=== PATIENT | female | born 1990 | race Caucasian/White ===

== ENCOUNTER 2017-03-18 11:47 | Emergency (ER) | payer SELFPAY ==
[2017-03-18 11:55] VITALS: BP 115/74; BMI 25.0
[2017-03-18] MEDS ORDERED: NS 1000 ML 1,000 ML IV ONE (12:31)
--- NOTE | 2017-03-18 12:32 | DR.GENAD ---
HPI - PCP Primary Care Physician: NFD - Complaint/Symptoms Chief Complaint:: PT C/O N/V, LIGHT HEADED, WEAKNESS, TIGHTNESS IN CHEST, TOOTHACHE (HAS BEEN BEING TREATED WITH ANTIBIOTIC). PT STATES THESE SX STARTED THIS AM WHEN SHE WOKE UP. PT ALSO STATES SHE HAS VOMITTED X4 TIMES. - Source History Provided: Patient - Mode of Arrival Mode of Arrival: Ambulatory - Timing Onset of Chief Complaint: 03/18/17 PMH - PMH Past Medical History: Yes Past Medical History: Asthma Past Medical History Comment: CHRONS DISEASE Past Surgical History: No - Family History History of Family Medical Conditions: Yes Family Medical History: Diabetes Mellitus, Cancer, Heart Failure Family Medical History Comment: COPD, EMPYSEMIA - Social History Does patient currently use any type of tobacco product: Yes Have you used tobacco products in the last 12 months: Yes Type of Tobacco Use: Cigarettes Does any household member use tobacco: Yes Alcohol Use: None Do you use any recreational Drugs:: No Lives With: Family Lives Where: Home - infectious screening In the last 2 months have you had wt loss of >10#?: NO Have you had fever, night sweats or hemotysis?: No Have you traveled outside the country in the last 6 months?: No Isolation: Standard ROS - Review of Systems Constitutional: No Symptoms Reported Eyes: No Symptoms Reported ENTM: No Symptoms Reported Respiratoy: No Symptoms Reported Cardiovascular: No Symptoms Reported Gastrointestinal/Abdominal: No Symptoms Reported Genitourinary: No Symptoms Reported Neurological: No Symptoms Reported Musculoskeletal: No Symptoms Reported Integumentary: No Symptoms Reported Hematologic/Lymphatic: No Symptoms Reported Endocrine: No Symptoms Reported Psychiatric: No Symptoms Reported All Other Systems: Reviewed and Negative PE - Vital Signs Vitals: Temperature 98.1 F Pulse Rate 86 Respiratory Rate 20 Blood Pressure 115/74 O2 Sat by Pulse Oximetry 99 - General Limitations: No Limitations General Appearance: Alert, In No Apparent Distress - Head Head Exam: Normal Inspection, Atraumatic - Eyes Eye exam: Normal Appearance, PERRL, EOMI - ENT ENT Exam: Normal Exam External Ear Exam: Normal External Inspection TM/Canal Exam: Bilateral Normal Nose Exam: Normal Nose Exam Mouth Exam: Normal Inspection Throat Exam: Normal Inspection - Neck Neck Exam: Normal Inspection - Chest Chest Inspection: Normal Inspection - Respiratory Respiratory Exam: Normal Lung Sounds Bilat Respiratory Exam: Bilateral Clear to Auscultation - Cardiovascular Cardiovascular Exam: Regular Rate, Normal Rhythm - Abdominal Exam Abdominal Exam: Normal Inspection Abdominal Tenderness: negative: RUQ, RLQ, LUQ, LLQ, Epigastrium, Suprapubic, Diffuse, Mild, Moderate, Severe, Other - Extremities Extremities Exam: Normal Inspection, Full ROM - Back Back Exam: Normal Inspection, Full ROM - Neurologic Neurological Exam: Alert, Oriented X3, CN II-XII Intact - Psychiatric Psychiatric Exam: Normal Affect - Skin Skin Exam: Warm, Dry, Intact ROR - Labs Reviewed Laboratory Results Reviewed?: Yes (urine negative) Result Diagrams: 03/18/17 12:50 03/18/17 12:50 Laboratory: WBC 8.5 X10^3/uL (3.6-10.0) 03/18/17 12:50 RBC 4.73 X10^6/uL (3.5-5.4) 03/18/17 12:50 Hgb 14.7 g/dL (12.0-16.0) 03/18/17 12:50 Hct 42.2 % (36.0-47.0) 03/18/17 12:50 MCV 89.1 fL (80.0-100.0) 03/18/17 12:50 MCH 31.0 pg (27.0-34.0) 03/18/17 12:50 MCHC 34.8 g/dL (33.0-35.0) 03/18/17 12:50 RDW 13.7 % (11.6-16.5) 03/18/17 12:50 Plt Count 232 X10^3/uL (150.0-450.0) 03/18/17 12:50 MPV 8.9 fL (7.4-11.0) 03/18/17 12:50 Neut % 65.3 % (42.0-75.0) 03/18/17 12:50 Lymph % 25.6 % (21.0-51.0) 03/18/17 12:50 [place] % 7.2 % (0.0-13.0) 03/18/17 12:50 Eos % 1.0 % (0.9-2.9) 03/18/17 12:50 Baso % 0.9 % (0.2-1.0) 03/18/17 12:50 Neut # 5.6 x10^3/uL (2.2-4.8) H 03/18/17 12:50 Lymph # 2.2 X10^3/uL (1.3-2.9) 03/18/17 12:50 [place] # 0.6 x10^3/uL (0.3-0.8) 03/18/17 12:50 Eos # 0.1 x10^3/uL (0.0-0.2) 03/18/17 12:50 Baso # 0.1 X10^3/uL (0.0-0.1) 03/18/17 12:50 Absolute Nucleated RBC 0.0 /100WBC 03/18/17 12:50 Sodium 140 mmol/L (136-145) 03/18/17 12:50 Corrected Sodium TNP 03/18/17 12:50 Potassium 4.3 mmol/L (3.5-5.1) 03/18/17 12:50 Chloride 107 mmol/L (98-107) 03/18/17 12:50 Carbon Dioxide 27.4 mmol/L (21-32) 03/18/17 12:50 BUN 8 mg/dL (7-18) 03/18/17 12:50 Creatinine 0.79 mg/dL (0.55-1.02) 03/18/17 12:50 Est GFR (MDRD) Af Amer > 60 (>60) 03/18/17 12:50 Est GFR (MDRD) Non-Af > 60 (>60) 03/18/17 12:50 Glucose 82 mg/dL (65-99) 03/18/17 12:50 Calcium 9.0 mg/dL (8.5-10.1) 03/18/17 12:50 Corrected Calcium TNP 03/18/17 12:50 Total Bilirubin 1.00 mg/dL (0.2-1.0) 03/18/17 12:50 AST 22 Units/L (15-37) 03/18/17 12:50 ALT 33 Units/L (12-78) 03/18/17 12:50 Alkaline Phosphatase 68 Units/L (46-116) 03/18/17 12:50 Total Protein 7.4 g/dL (6.4-8.2) 03/18/17 12:50 Albumin 3.7 g/dL (3.4-5.0) 03/18/17 12:50 Globulin 3.7 g/dL (2.5-4.5) 03/18/17 12:50 Albumin/Globulin Ratio 1.0 Ratio (1.1-2.1) L 03/18/17 12:50 HCG, Qual Negative <10 mIU/mL 03/18/17 12:50 Specimen Type Clean catch urine 03/18/17 13:09 Urine Color Yellow (YELLOW) 03/18/17 13:09 Urine Appearance Clear (CLEAR) 03/18/17 13:09 Urine pH 6.0 (5.0 - 8.0) 03/18/17 13:09 Ur Specific [place] 1.010 (1.000-1.030) 03/18/17 13:09 Urine Protein 1+ (NEGATIVE) 03/18/17 13:09 Urine Glucose (UA) Negative (NEGATIVE) 03/18/17 13:09 Urine Ketones Negative (NEGATIVE) 03/18/17 13:09 Urine Occult Blood Negative (NEGATIVE) 03/18/17 13:09 Urine Nitrite Negative (NEGATIVE) 03/18/17 13:09 Urine Bilirubin Negative (NEGATIVE) 03/18/17 13:09 Urine Urobilinogen Normal (NORMAL) 03/18/17 13:09 Ur Leukocyte Esterase 1+ (NEGATIVE) 03/18/17 13:09 Urine RBC 0-3 /HPF (NEGATIVE) 03/18/17 13:09 Urine WBC 0-3 /HPF (NEGATIVE) 03/18/17 13:09 Ur Squamous Epith Cells Negative /HPF (NEGATIVE) 03/18/17 13:09 Urine Bacteria Negative /HPF (NEGATIVE) 03/18/17 13:09 Ur Culture Indicated? No/not indicated 03/18/17 13:09 - XRAY XRAY Interpreted by: Radiologist (Chest: no acute cardiopulmonary disease) - Diagnosis Discharge Problem: Viral disease exposure - Discharge Plan Condition: Stable - Follow ups/Referrals Follow ups/Referrals: NFD,None [Primary Care Provider] - 3 days - Instructions
[2017-03-18] MEDS ORDERED: NS 1000 ML 1,000 ML ONE (12:52)
--- NOTE | 2017-03-18 12:52 | RAD ---
HISTORY: Weakness. Study: Portable chest. Comparison: Acute abdominal series dated December 16, 2015. Findings: The trachea is midline. The cardiac silhouette is unremarkable. The lungs are clear without focal infiltrate or effusion. The bony thorax is unremarkable. IMPRESSION: 1. No acute cardiopulmonary disease. Reported By:
[2017-03-18 13:20] LABS: BILIRUBIN,URINE NEGATIVE (NEGATIVE); BLOOD/HEMOGLOBIN,URINE NEGATIVE (NEGATIVE); GLUCOSE, URINE NEGATIVE (NEGATIVE); KETONES,URINE NEGATIVE (NEGATIVE); LEUKOCYTE ESTERASE ,URINE 1+ (NEGATIVE); NITRITES,URINE NEGATIVE (NEGATIVE); PROTEIN,URINE 1+ (NEGATIVE); UROBILINOGEN,URINE NORMAL (NORMAL)
[2017-03-18 13:20] LABS: BASOPHILS # (AUTO) 0.1 X10^3/uL (0.0-0.1); BASOPHILS % (AUTO) 0.9 % (0.2-1.0); EOSINOPHILS # (AUTO) 0.1 x10^3/uL (0.0-0.2); HEMATOCRIT 42.2 % (36.0-47.0); HEMOGLOBIN 14.7 g/dL (12.0-16.0); LYMPHOCYTES # (AUTO) 2.2 X10^3/uL (1.3-2.9); LYMPHOCYTES % (AUTO) 25.6 % (21.0-51.0); MEAN CORPUSCULAR HGB CONC 34.8 g/dL (33.0-35.0); MEAN CORPUSCULAR VOLUME 89.1 fL (80.0-100.0); MEAN PLATELET VOLUME 8.9 fL (7.4-11.0); MONOCYTES # (AUTO) 0.6 x10^3/uL (0.3-0.8); MONOCYTES % (AUTO) 7.2 % (0.0-13.0); NEUTROPHILS # (AUTO) 5.6 x10^3/uL (2.2-4.8); NEUTROPHILS % (AUTO) 65.3 % (42.0-75.0); PLATELET COUNT 232 X10^3/uL (150.0-450.0); RED BLOOD COUNT 4.73 X10^6/uL (3.5-5.4); RED CELL DISTRIBUTION WIDTH 13.7 % (11.6-16.5); WHITE BLOOD COUNT 8.5 X10^3/uL (3.6-10.0)
[2017-03-18 13:21] LABS: SERUM PREGNANCY TEST, QUAL NEGATIVE <10 mIU/mL
[2017-03-18 13:23] LABS: ALANINE AMINOTRANSFERASE 33 Units/L (12-78); ALBUMIN 3.7 g/dL (3.4-5.0); ALKALINE PHOSPHATASE 68 Units/L (46-116); ASPARTATE AMINO TRANSFERASE 22 Units/L (15-37); BLOOD UREA NITROGEN 8 mg/dL (7-18); CARBON DIOXIDE 27.4 mmol/L (21-32); CHLORIDE 107 mmol/L (98-107); CREATININE 0.79 mg/dL (0.55-1.02); GLUCOSE 82 mg/dL (65-99); SODIUM 140 mmol/L (136-145); TOTAL PROTEIN 7.4 g/dL (6.4-8.2); eGFR BLACK RACES > 60 (>60); eGFR NON BLACK RACES > 60 (>60)
[2017-03-18 13:39] LABS: APPEARANCE,URINE CLEAR (CLEAR); BACTERIA,URINE NEGATIVE /HPF (NEGATIVE); COLOR,URINE YELLOW (YELLOW); RBC,URINE 0-3 /HPF (NEGATIVE); SQUAMOUS EPITHELIAL CELL,UR NEGATIVE /HPF (NEGATIVE)
== END 2017-03-18 14:26 | disposition home or self-care (01) ==
LOC: ER 11:58
DX: R11.2 Nausea with vomiting, unspecified (principal); Z20.828 Contact with and (suspected) exposure to other viral communicable diseases
CPT/HCPCS: 36415; 71010; 80053; 81001; 84703; 85025; 96365; 99283; A4222